=== PATIENT | male | born 1960 | race Caucasian/White ===

== ENCOUNTER 2020-10-31 09:34 | Emergency (ER) | payer SELFPAY ==
[~2020-10-31] VITALS: Ht 172.7 cm; Wt 70.3 kg
[2020-10-31 09:47] VITALS: Ht 172.7 cm; Wt 70.3 kg
[2020-10-31 10:38] LABS: BASOPHIL % 1.2 % (0-2); PLATELET COUNT 285 x10^3mcL (130-400); RED CELL DISTRIBUTION WIDTH 12.1 % (11.5-14.5)
[2020-10-31 11:08] LABS: CALCIUM 8.4 mg/dL (8.5-10.1); CARBON DIOXIDE 26.6 mmol/L (21-32); CHLORIDE SERUM 98 mmol/L (98-107); GFR1 > 60 mL/min; GLUCOSE SERUM 115 mg/dL (74-106); POTASSIUM SERUM 3.7 mmol/L (3.5-5.1); SODIUM SERUM 134 mmol/L (136-145)
[2020-10-31 11:12] LABS: ALKALINE PHOSPHATASE 156 U/L (46-116); ALT/SGPT 57 U/L (16-63); AST/SGOT 44 U/L (15-37); TOTAL PROTEIN, SERUM 7.2 g/dL (6.4-8.2)
[2020-10-31 11:13] LABS: ALBUMIN 3.1 g/dL (3.4-5.0)
[2020-10-31 12:32] VITALS: BP 103/70
== END 2020-10-31 12:32 | disposition home or self-care (01) ==
LOC: ED 09:34
PROVIDERS: Emergency Medicine
DX: U07.1 COVID-19 (principal); J12.89 Other viral pneumonia; R10.32 Left lower quadrant pain
CPT/HCPCS: J1885; U0003